=== PATIENT | female | born 1985 | race Caucasian/White ===

== ENCOUNTER 2017-02-05 11:06 | Observation (INO) | payer OTHER ==
[~2017-02-05] VITALS: Ht 170.2 cm; Wt 92.5 kg
[~2017-02-05 11:06] MED LIST: FERR-212 PO; PREN1KIT74 PO
[2017-02-05 11:18] VITALS: BP 108/65
[2017-02-05] MEDS ORDERED: INFLUENZA VIRUS VACCINE QUAD 0.5 ML SYR IMVAC SCH (12:00)
[2017-02-05] MEDS ORDERED: INFLUENZA VIRUS VACCINE QUAD 0.5 ML SYR IMVAC ONE (12:20)
== END 2017-02-05 12:18 | disposition home or self-care (01) ==
LOC: MLD 11:06
PROVIDERS: ADMIT Obstetrics & Gynecology; ATTEND Obstetrics & Gynecology
DX: O26.892 Other specified pregnancy related conditions, second trimester (principal); R10.9 Unspecified abdominal pain; M54.9 Dorsalgia, unspecified; Z3A.26 26 weeks gestation of pregnancy
CPT/HCPCS: 81000; 90471; 90658; G0378

== ENCOUNTER 2017-03-17 16:15 | Observation (INO) | payer OTHER ==
[~2017-03-17] VITALS: Ht 170.2 cm; Wt 96.2 kg
[2017-03-17 16:43] VITALS: BP 133/72
[2017-03-17 17:28] LABS: APPEARANCE,URINE CLEAR (CLEAR); BILIRUBIN,URINE NEGATIVE (NEGATIVE); BLOOD, URINE NEGATIVE (NEGATIVE); COLOR,URINE YELLOW (YELLOW); LEUKOCYTE ESTERASE ,URINE NEGATIVE (NEGATIVE); NITRITE, URINE NEGATIVE (NEGATIVE); PH,URINE 6.5 (5.0-9.0); UGLUCOSE NEGATIVE (NEGATIVE)
[2017-03-17 18:10] LABS: BASOPHILS # (AUTO) 0.1 K/uL (0.00-0.22); BASOPHILS % (AUTO) 0.8 % (0.0-2.0); EOSINOPHILS # (AUTO) 0.1 K/uL (0-0.4); HEMATOCRIT 32.7 % (36-48); HEMOGLOBIN 10.9 g/dL (12.0-16.0); LYMPHOCYTES # (AUTO) 1.6 K/uL (2.5-16.5); LYMPHOCYTES % (AUTO) 16.8 % (20.5-51.1); MEAN CORPUSCULAR HEMOGLOBIN 27 pg (27-31); MEAN CORPUSCULAR HGB CONC 33 g/dL (33-37); MEAN CORPUSCULAR VOLUME 82 fL (80-94); MONOCYTES # (AUTO) 0.7 K/uL (0.8-1.0); MONOCYTES % (AUTO) 6.7 % (1.7-9.3); NEUTROPHILS # (AUTO) 7.3 K/uL (1.8-7.7); NEUTROPHILS % (AUTO) 74.7 % (42.2-75.2); PLATELET COUNT (AUTO) 145 K/uL (140-450); RED BLOOD CELL COUNT(AUTO) 3.99 MIL/uL (4.20-5.40); RED CELL DISTRIBUTION WIDTH 12.8 % (11.6-13.7); WHITE BLOOD COUNT (AUTO) 9.8 K/uL (4.8-10.8)
[2017-03-17 18:23] LABS: ANION GAP 18.3 (8-16); CARBON DIOXIDE 21.5 mmol/L (21-32); CREATININE 0.6 mg/dL (0.6-1.3); POTASSIUM 3.8 mmol/L (3.5-5.1); TOTAL BILIRUBIN 0.2 mg/dL (0.0-1.0)
[2017-03-17 18:27] LABS: PROTHROMBIN TIME 10.2 secs (10.8-13.4)
== END 2017-03-17 18:52 | disposition home or self-care (01) ==
LOC: MLD 16:15
PROVIDERS: ADMIT Obstetrics & Gynecology; ATTEND Obstetrics & Gynecology
DX: O26.899 Other specified pregnancy related conditions, unspecified trimester (principal); R42 Dizziness and giddiness; R51 Headache; Z3A.00 Weeks of gestation of pregnancy not specified
CPT/HCPCS: 36415; 76819; 80053; 81003; 85025; 85379; 85384; 85610; 85730; G0378; Q0092

== ENCOUNTER 2017-05-11 10:25 | Observation (INO) | payer OTHER ==
[~2017-05-11] VITALS: Ht 170.2 cm; Wt 98.4 kg
[~2017-05-11 10:25] MED LIST changes: +CALC625T27 PO
== END 2017-05-11 13:46 | disposition home or self-care (01) ==
LOC: MLD 10:25
PROVIDERS: ADMIT Obstetrics & Gynecology; ATTEND Obstetrics & Gynecology
DX: O48.1 Prolonged pregnancy (principal); Z3A.40 40 weeks gestation of pregnancy
CPT/HCPCS: 76819; G0378; Q0092

== ENCOUNTER 2017-05-14 11:26 | Inpatient (IN) | payer OTHER ==
[~2017-05-14] VITALS: Ht 170.2 cm; Wt 98.4 kg
[2017-05-14 12:08] VITALS: BP 129/71
[2017-05-14] MEDS ORDERED: NALBUPHINE HYDROCHLORIDE 10 MG/ML VIAL IVP PRN (13:40)
[2017-05-14] MEDS ORDERED: MISOPROSTOL 25 MCG TAB VG PRN (13:40)
[2017-05-14] MEDS ORDERED: METHYLERGONOVINE 0.2 MG/ML AMP IM PRN (13:40)
[2017-05-14] MEDS ORDERED: OXYTOCIN 10 UNITS/ML VIAL IM SCH (13:40)
[2017-05-14] MEDS ORDERED: PROMETHAZINE 25 MG/ML VIAL IVP PRN (13:40)
[2017-05-14] MEDS ORDERED: CARBOPROST 250 MCG/ML AMP IM PRN (13:40)
[2017-05-14] MEDS ORDERED: LACTATED RINGERS 1,000 ML IV SCH (13:40)
[2017-05-14] MEDS ORDERED: MISOPROSTOL 25 MCG TAB ONE ×2 (14:41→17:57)
[2017-05-14 14:42] LABS: BASOPHILS % (AUTO) 0.6 % (0.0-2.0); EOSINOPHILS # (AUTO) 0.1 K/uL (0-0.4); HEMATOCRIT 33.3 % (36-48); HEMOGLOBIN 10.6 g/dL (12.0-16.0); LYMPHOCYTES # (AUTO) 1.4 K/uL (2.5-16.5); MEAN CORPUSCULAR HEMOGLOBIN 27 pg (27-31); MEAN CORPUSCULAR HGB CONC 32 g/dL (33-37); MEAN CORPUSCULAR VOLUME 83.1 fL (80-94); MONOCYTES # (AUTO) 0.5 K/uL (0.8-1.0); MONOCYTES % (AUTO) 6.7 % (1.7-9.3); NEUTROPHILS # (AUTO) 6.1 K/uL (1.8-7.7); NEUTROPHILS % (AUTO) 74.7 % (42.2-75.2); PLATELET COUNT (AUTO) 138 K/uL (140-450); RED BLOOD CELL COUNT(AUTO) 4.01 MIL/uL (4.20-5.40); RED CELL DISTRIBUTION WIDTH 13.1 % (11.6-13.7); WHITE BLOOD COUNT (AUTO) 8.1 K/uL (4.8-10.8)
[2017-05-14 15:10] LABS: CARBON DIOXIDE 22.9 mmol/L (21-32); CREATININE 0.7 mg/dL (0.6-1.3); POTASSIUM 3.9 mmol/L (3.5-5.1)
[2017-05-14 15:14] LABS: ALBUMIN 2.6 g/dL (3.4-5.0); TOTAL BILIRUBIN 0.1 mg/dL (0.0-1.0)
[2017-05-14 15:21] LABS: APPEARANCE,URINE CLEAR (CLEAR); BILIRUBIN,URINE NEGATIVE (NEGATIVE); BLOOD, URINE NEGATIVE (NEGATIVE); COLOR,URINE YELLOW (YELLOW); LEUKOCYTE ESTERASE ,URINE NEGATIVE (NEGATIVE); NITRITE, URINE NEGATIVE (NEGATIVE); PH,URINE 6.5 (5.0-9.0); UGLUCOSE NEGATIVE (NEGATIVE)
[2017-05-14] MEDS ORDERED: OXYTOCIN 20 UNITS in LACTATED RINGERS 1,000 ML IV SCH (20:55)
[2017-05-14] MEDS ORDERED: OXYTOCIN 20 UNITS/LR PREMIX 1,000 ML IV ONE (21:06)
[2017-05-15] MEDS ORDERED: IBUPROFEN 800 MG TAB PO PRN (02:25)
[2017-05-15] MEDS ORDERED: HYDROcodone/APAP 5/325 MG 1 TAB TAB PO PRN (02:25)
[2017-05-15] MEDS ORDERED: BENZOCAINE/MENTHOL 20%-0.5% 60 GM CAN TP PRN (02:25)
[2017-05-15] MEDS ORDERED: TEMAZEPAM 15 MG CAP PO PRN (02:25)
[2017-05-15] MEDS ORDERED: OXYTOCIN 10 UNITS/ML VIAL IM PRN (02:25)
[2017-05-15] MEDS ORDERED: MEASLES, MUMPS, AND RUBELLA 1 VIAL SQVAC PRN (02:25)
[2017-05-15] MEDS ORDERED: oxyCODONE/APAP 5/325 MG 1 TAB TAB PO PRN (02:25)
[2017-05-15] MEDS ORDERED: METHYLERGONOVINE 0.2 MG/ML AMP IM PRN (02:25)
[2017-05-15] MEDS ORDERED: NALBUPHINE HYDROCHLORIDE 10 MG/ML VIAL ONE (02:29)
[2017-05-15] MEDS ORDERED: PROMETHAZINE 25 MG/ML VIAL ONE (02:30)
[2017-05-15] MEDS ORDERED: NALOXONE 0.4 MG/ML VIAL ONE (02:48)
[2017-05-15] MEDS ORDERED: OXYTOCIN 10 UNITS/ML VIAL ONE (02:51)
--- NOTE | 2017-05-15 12:27 | NUR ---
PATIENT HAS BEEN SCREENED AND CATEGORIZED LOW NUTRITION RISK. PATIENT WILL BE SEEN WITHIN 7 DAYS OF ADMISSION. 05/21/[address]
[2017-05-15] MEDS ORDERED: DOCUSATE SOD/SENNA 50/8.6 MG 1 TAB PO SCH (21:00)
[2017-05-16 09:16] LABS: HEMATOCRIT 29.6 % (36-48); HEMOGLOBIN 9.3 g/dL (12.0-16.0)
[2017-05-16] MEDS ORDERED: IBUP-2213 PO (09:33)
== END 2017-05-17 13:50 | disposition home or self-care (01) | DRG 560 ==
LOC: MFCC 11:26 → OBSVTOIN 13:44 → MFCC 05-15 08:08
PROVIDERS: ADMIT Obstetrics & Gynecology; ATTEND Obstetrics & Gynecology
PROC: 10E0XZZ Delivery of Products of Conception, External Approach (ICD-10-PCS; principal; 2017-05-15)
PROC: 3E0P7VZ Introduction of Hormone into Female Reproductive, Via Natural or Artificial Opening (ICD-10-PCS; 2017-05-15)
PROC: 3E0234Z Introduction of Serum, Toxoid and Vaccine into Muscle, Percutaneous Approach (ICD-10-PCS; 2017-05-15)
DX: O48.0 Post-term pregnancy (principal); Z23 Encounter for immunization; Z37.0 Single live birth; Z3A.40 40 weeks gestation of pregnancy
CPT/HCPCS: G0378 ×2; 36415; 59200; 59409; 76815; 80053; 81003; 85018; 85025; 86592; 86886; 86900; 86901; 90715; J2300; J2310; J2550; J2590; J7120; Q0092